=== PATIENT | female | born 1985 | race Caucasian/White ===

== ENCOUNTER 2024-12-04 01:38 | Inpatient (IN) | payer MEDICAID, SELFPAY ==
[2024-12-04] VITALS (13 sets, daily range): BP systolic 121–166; BP diastolic 61–108; PULSE 73–109; RESP 15–32; TEMP 36.4–37.6; O2SAT 76–98; BMI 30.2
--- NOTE | ~2024-12-04 | XR_ITS ---
CLINICAL HISTORY: sob, hypoxic 1 view chest x-ray Comparison: None provided Findings: Perihilar and upper lobe infiltrates. Normal size heart. No acute fracture. IMPRESSION: Perihilar and upper lobe infiltrates. This document has been electronically signed by: Viraj Marques MD, PHD on 12/04/2024 03:31:23
--- NOTE | ~2024-12-04 | CT_ITS ---
CLINICAL HISTORY: unresponsive, sob, elevated dimer CT angiography chest with contrast. 3D Postprocessing. Comparison: None provided Findings: The heart is normal size. RV/LV ratio is normal. The thoracic aorta is normal caliber. No acute pulmonary embolus. The visualized thyroid and mediastinum are unremarkable. There is diffuse consolidation, possible pneumonia, pulmonary edema, hemorrhage. The upper abdomen is unremarkable. The bones are intact. IMPRESSION: 1. No pulmonary emboli. 2. Diffuse consolidation, differential considerations noted This document has been electronically signed by: Robert Gardiner MD on 12/04/2024 05:20:13
--- NOTE | 2024-12-04 02:12 | ECG_ITS ---
Test Reason : OD Blood Pressure : */* mmHG Vent. Rate : 74 BPM Atrial Rate : 74 BPM P-R Int : 176 ms QRS Dur : 86 ms QT Int : 424 ms P-R-T Axes : 49 -3 53 degrees QTcB Int : 470 ms Normal sinus rhythm Septal infarct , age undetermined Abnormal ECG No previous ECGs available Referred By: Mckenna Martinez Electronically Signed By: KATERINA EDWARDS
--- NOTE | 2024-12-04 02:13 | PC.NURSE ---
87% on 4L nc. placed on 7L oxymask. MD Martinez at bedside. no narcan given. remains at 88% when resting w/ eyes closed. pt awakes easily but does not stay awake. 20IV LAC
[2024-12-04 02:15] LABS: MANUAL DIFF FLAG NO
[2024-12-04 02:17] LABS: Hematocrit 39.1 % (37.0-47.0); Hemoglobin 13.1 g/dl (12.0-16.0); Imm Gran Abs Auto 0.04 X10*3/uL (0.00-0.03); Imm Gran Pct Auto 0.4 % (0.0-0.4); Lymphocytes Absolute Auto 1.4 X10*3/uL (1.2-4.9); Mean Corpuscular HGB Conc 33.5 g/dl (31.0-35.0); Mean Corpuscular Hemoglobin 30.0 pg (27.0-33.0); Mean Corpuscular Volume 89.7 fL (80.0-98.0); NRBC Abs Auto 0.000 X10*3/uL (0.0-0.012); NRBC Pct Auto 0.0 /100WBC (0.0-0.2); Platelet Count 199 X10*3/uL (160-400); Red Blood Count 4.36 X10*6/uL (4.20-5.50); White Blood Count 9.1 X10*3/uL (4.8-10.8)
--- NOTE | 2024-12-04 02:20 | ED_ITS ---
HPI - Overdose General Chief Complaint: Overdose Stated Complaint: Overdose Time Seen by Provider: 12/04/24 02:01 Source: patient and EMS Mode of arrival: EMS Limitations: no limitations History of Present Illness ED Provider: Dr. Mckenna Martinez HPI Narrative: Patient comes to the emergency room via ambulance. According to EMS, the patient was found at home unresponsive by her roommates. Patient admits that she has smoke crack cocaine and possibly used heroin. Allegedly, she was given 24 mg intranasal of Narcan by her roommate. According to the patient, this was an accidental overdose, did not mean to hurt herself. When EMS arrived, patient's oxygen saturation was in the low 80s on room air. Patient was put on 4 L nasal cannula. On arrival, patient's nurse attempted weaning the patient off, patient fell asleep and within sec her oxygen dropped to 76% on room air. Patient was put back again on nasal cannula. Related Data Allergies Allergy/AdvReac Type Severity Reaction Status Date / Time hydrochlorothiazide AdvReac Unknown Verified 12/04/24 01:50 lisinopril AdvReac Cough Verified 12/04/24 01:50 Review of Systems 2 Review of Systems: Constitutional : No Weight loss, No Fever, No Chills, No Night Sweats, No Fatigue, No Malaise ENT/Mouth : No Hearing loss, No Ear Pain, No Nasal Congestion, No Sinus Pain, No Hoarseness, No sore throat, No Rhinorrhea, No Swallowing Difficulty Eyes: No Eye Pain, No Swelling, No Redness, No Foreign Body, No Discharge, No Vision Changes Cardiovascular : No Chest Pain, No SOB, No Dyspnea on Exertion, No Orthopnea, No Edema, No Palpitations Respiratory : No Cough, No Sputum, No Wheezing, No Smoke Exposure, No Dyspnea Gastrointestinal : No Nausea, No Vomiting, No Diarrhea, No Constipation, No abdominal Pain, No Hematochezia, No Melena Genitourinary : no irregular bleeding, No Dysuria, No Urinary Frequency, No Hematuria, No Urinary Incontinence, No Urgency, No Flank Pain, No Urinary Flow Changes, No Hesitancy Musculoskeletal : No joint pain, No Myalgias, No Joint Swelling Skin : No Skin Lesions, No rash Neuro : No Weakness, No Numbness, No Paresthesias, No Loss of Consciousness, No Dizziness, No Headache Psych : No Anxiety/Panic, No Depression, No SI/HI/AH/VH, accidental overdose Heme/Lymph: No Bruising, No Bleeding,No Lymphadenopathy Endocrine : No Polyuria, No Polydipsia, No Temperature Intolerance [facility] Past Medical History Medical History (Updated 12/04/24 @ 05:50 by Mckenna Martinez MD) Overdose Polysubstance abuse Physical Exam 2 Exam: Exam: Appearance: Alert. Oriented X3. Somnolent but easily arousable, patient wakes up and is able to give a coherent history Eyes: Pupils equal, round and reactive to light. ENT: Pharynx normal. Neck: Normal inspection. Neck supple. No lymph nodes noted. No crepitus CVS: Normal heart rate and rhythm. Pulses normal. Normal S1 and S2 Respiratory: No respiratory distress. Breath sounds normal. No Wheezing. No rales Abdomen: Soft and nontender. No rigidity. No distention. Skin: Skin warm and dry. Normal skin color. Normal skin turgor. Extremities: No lower extremity edema. No Lacerations. No Rash Neuro: Oriented X 3. No motor deficit. No sensory deficit. Moving all extremities. No slurred speech. CN 2 through 12 grossly intact Psych: calm, cooperative, normal affect Vital Signs: Vital Signs: Last Vital Signs Temp 97.6 F 12/04/24 01:49 Pulse 79 12/04/24 04:29 Resp 24 H 12/04/24 04:29 BP 138/70 12/04/24 04:29 Pulse Ox 91 L 12/04/24 04:29 O2 Del Method Oxymask 12/04/24 04:29 O2 Flow Rate 7 12/04/24 04:29 BMI result Body Mass Index 30.2 Course Course Course Narrative: Although patient is fully awake talking and making sense talking to us. Patient's oxygen saturation drops to 86 -87% on 4 L of oxygen while talking and being awake. If patient did not falls asleep, even on 4 L, oxygen saturation drops to the low 80s. Patient was switched to OxyMask. All of patient's labs pending It is very unlikely that patient received at much Narcan. Patient labs not have any signs of narcotics withdrawal Patient receiving IV Narcan, at least to get the patient to have a constant oxygen saturation above 90 After 0.2 mg of Narcan, patient initially was doing okay, saturating 91% on 4 L. However, patient is desaturating and again. Patient now receiving an additional dose of 0.4 mg of Narcan and Zofran. So far, the patient does not show any signs of narcotic withdrawal Medications Administered Generic Name Dose Route Start Last Admin Trade Name Freq PRN Reason Stop Dose Admin Azithromycin 500 mg/ Sodium 250 mls @ 125 mls/hr 12/04/24 04:09 12/04/24 05:39 Chloride IV 12/04/24 06:08 125 mls/hr ONCE ONE Administration Sodium Chloride 2,000 mls @ 999 mls/hr 12/04/24 04:10 12/04/24 05:43 Ns IVCONT 12/04/24 06:10 999 mls/hr .Q2H1M ONE Administration Discontinued Medications Generic Name Dose Route Start Last Admin Trade Name Freq PRN Reason Stop Dose Admin Ceftriaxone Sodium 1 gm 12/04/24 03:50 12/04/24 03:58 Ceftriaxone Sodium 1 Gm Vial IVPUSH 12/04/24 03:51 1 gm ONCE ONE Administration Naloxone HCl 0.2 mg 12/04/24 02:16 12/04/24 02:25 Naloxone Hcl 0.4 Mg/Ml Vial IVPUSH 12/04/24 02:17 0.2 mg STAT STA Administration Naloxone HCl 0.4 mg 12/04/24 03:45 12/04/24 03:53 Naloxone Hcl 0.4 Mg/Ml Vial IVPUSH 12/04/24 03:46 0.4 mg ONCE ONE Administration Ondansetron HCl 4 mg 12/04/24 02:17 12/04/24 02:26 Ondansetron Hcl 4 Mg/2 Ml Vial IVPUSH 12/04/24 02:18 4 mg ONCE ONE Administration Medical Decision Making Medical Decision Making MDM Narrative: Interpretation of labs: No significant abnormality in patient's hematology or chemistry. Patient's D-dimer is 2052. Given patient's presentation, hypoxia and D-dimer, we will go ahead and scan for a pulmonary embolism versus septic emboli? Patient's urinalysis positive for UTI. Patient at this time is too somnolent to be able to take p.o.. We will go ahead and give her the 1st dose of IV antibiotics. Ceftriaxone. At this time, 04:10, I was able to see the patient's CAT scan. At this time, it has not been read by Radiology, however, seems that patient may be developing pneumonia, possible septic emboli? At this time we will add azithromycin to the this medications. Patient's vitals are stable, sepsis is not suspected. Patient is being given fluids based on ideal weight of 50 kg, patient is obese CT scan report pending. Patient requiring 7 L of oxygen with an OxyMask to keep the saturation of 90% Patient is answering questions. Patient was asked if she has had any URI symptoms. Patient states that ?for awhile? she has been coughing black stuff. We attempted to figure out what ?awhile? means, patient states she does not know Patient's CTA is negative for PE. Definitive diagnosis difficult to interpret. Radiology report: Pneumonia versus hemorrhage versus edema I discussed the above-mentioned with Dr. Mercedes, patient being admitted. Patient's oxygen saturation is in the 90s but drops to the high 80s even on 7 L to 10 L. Patient does not have history of COPD or pneumonia. However, speaking with our respiratory therapist, we will try some nebulization treatments and we will switch the patient to high flow. Differential Diagnosis Differential Diagnoses: The differential diagnosis associated with the presentation includes (Pulmonary embolism, pneumonia, aspiration, overdose) Admission/Observation Consideration of admission/observation: Escalation of care including admission/observation considered Consult Healthcare Provider Management of the patient was discussed with: Hospitalist Lab Data [facility] Lab Attestation statement: I reviewed the patient's lab results. 12/04/24 02:11 12/04/24 02:11 Labs: Lab Results 12/04/24 12/04/24 12/04/24 Range/Units 02:11 02:23 03:17 WBC 9.1 (4.8-10.8) X10*3/uL RBC 4.36 (4.20-5.50) X10*6/uL Hgb 13.1 (12.0-16.0) g/dl Hct 39.1 (37.0-47.0) % MCV 89.7 (80.0-98.0) fL MCH 30.0 (27.0-33.0) pg MCHC 33.5 (31.0-35.0) g/dl RDW 12.7 (11.0-16.0) % Plt Count 199 (160-400) X10*3/uL MPV 11.1 (9.4-12.3) fL Immature Gran % (Auto) 0.4 (0.0-0.4) % Neut % (Auto) 78.2 H (45-73) % Lymph % (Auto) 15.1 L (20-40) % Eagle % (Auto) 4.2 (2-11) % Eos % (Auto) 1.5 (0-4) % Baso % (Auto) 0.6 (0-2) % Lymph # (Auto) 1.4 (1.2-4.9) X10*3/uL Eagle # (Auto) 0.4 (0.1-1.2) X10*3/uL Eos # (Auto) 0.1 (0.0-0.4) X10*3/uL Baso # (Auto) 0.1 (0.0-0.2) X10*3/uL Abs Immat Gran (auto) 0.04 H (0.00-0.03) X10*3/uL Absolute Neuts (auto) 7.1 (2.0-8.3) x10*3/uL Absolute Nucleated RBC 0.000 (0.0-0.012) X10*3/uL Nucleated RBC % (auto) 0.0 (0.0-0.2) /100WBC D-Dimer High Sensitivty 2053 NG/ML Sodium 142 (135-145) mmol/L Potassium 3.3 (3.3-5.1) mmol/L Chloride 110 H (96-108) mmol/L Carbon Dioxide 23 (22-29) mmol/L Anion Gap 12 (12-20) BUN 32 H (9-16) mg/dL Creatinine 0.99 (0.5-1.4) mg/dL Estim Creat Clear Calc 79.2 Estimated GFR > 60 Random Glucose 162 H (60-115) mg/dL Lactic Acid (0.5-2.0) mmol/L Calcium 8.1 L (8.4-10.2) mg/dL Magnesium 2.2 (1.6-2.6) mg/dL Total Bilirubin 0.2 (0.0-1.0) mg/dL Direct Bilirubin < 0.2 (0.0-0.5) mg/dL AST 42 H (5-31) U/L ALT 26 (0-31) U/L Alkaline Phosphatase 57 (39-117) U/L Total Protein 6.4 L (6.5-8.0) g/dL Albumin 4.0 (3.5-5.0) g/dL Beta HCG, Quant < 2 mIU/mL Urine Color Yellow Urine Appearance Clear Urine pH 6.5 (5.0-9.0) Ur Specific Linch 1.020 (1.005-1.025) Urine Protein 30 (1+) H (Neg-Trace) mg/dL Urine Glucose (UA) Negative (Negative) mg/dL Urine Ketones Negative (Negative) mg/dL Urine Blood Negative (Negative) Urine Nitrite Negative (Negative) Ur Leukocyte Esterase Moderate (2+) H (Negative) Urine RBC 0-2 (0-2) /HPF Urine WBC >50 H (0-5) /HPF Ur Squamous Epith Cells 3-5 (0-2) /HPF Urine Bacteria 1+ (None Seen) Hyaline Casts 3-5 (0-2) /LPF Urine Opiates Screen POSITIVE H (Not Detect) Ur Buprenorphine Scrn Not Detected (Not Detect) ng/mL Ur Oxycodone Screen Not Detected (Not Detect) ng/mL Urine Methadone Screen Not Detected (Not Detect) ng/mL Urine Fentanyl Screen POSITIVE H (Not Detect) Ur Barbiturates Screen Not Detected (Not Detect) Ur Phencyclidine Scrn Not Detected (Not Detect) Ur Amphetamines Screen Not Detected (Not Detect) U Benzodiazepines Scrn Not Detected (Not Detect) Urine Cocaine Screen POSITIVE H (Not Detect) U Marijuana (THC) Screen Not Detected (Not Detect) Ethyl Alcohol < 10 mg/dL Influenza Type A (PCR) NEGATIVE (Negative) Influenza Type B (PCR) NEGATIVE (Negative) RSV RNA Qual (PCR) NEGATIVE (Negative) SARS-CoV-2 RNA (RT-PCR) NEGATIVE (Negative) 12/04/24 Range/Units 05:01 WBC (4.8-10.8) X10*3/uL RBC (4.20-5.50) X10*6/uL Hgb (12.0-16.0) g/dl Hct (37.0-47.0) % MCV (80.0-98.0) fL MCH (27.0-33.0) pg MCHC (31.0-35.0) g/dl RDW (11.0-16.0) % Plt Count (160-400) X10*3/uL MPV (9.4-12.3) fL Immature Gran % (Auto) (0.0-0.4) % Neut % (Auto) (45-73) % Lymph % (Auto) (20-40) % Eagle % (Auto) (2-11) % Eos % (Auto) (0-4) % Baso % (Auto) (0-2) % Lymph # (Auto) (1.2-4.9) X10*3/uL Eagle # (Auto) (0.1-1.2) X10*3/uL Eos # (Auto) (0.0-0.4) X10*3/uL Baso # (Auto) (0.0-0.2) X10*3/uL Abs Immat Gran (auto) (0.00-0.03) X10*3/uL Absolute Neuts (auto) (2.0-8.3) x10*3/uL Absolute Nucleated RBC (0.0-0.012) X10*3/uL Nucleated RBC % (auto) (0.0-0.2) /100WBC D-Dimer High Sensitivty NG/ML Sodium (135-145) mmol/L Potassium (3.3-5.1) mmol/L Chloride (96-108) mmol/L Carbon Dioxide (22-29) mmol/L Anion Gap (12-20) BUN (9-16) mg/dL Creatinine (0.5-1.4) mg/dL Estim Creat Clear Calc Estimated GFR Random Glucose (60-115) mg/dL Lactic Acid 0.9 (0.5-2.0) mmol/L Calcium (8.4-10.2) mg/dL Magnesium (1.6-2.6) mg/dL Total Bilirubin (0.0-1.0) mg/dL Direct Bilirubin (0.0-0.5) mg/dL AST (5-31) U/L ALT (0-31) U/L Alkaline Phosphatase (39-117) U/L Total Protein (6.5-8.0) g/dL Albumin (3.5-5.0) g/dL Beta HCG, Quant mIU/mL Urine Color Urine Appearance Urine pH (5.0-9.0) Ur Specific Linch (1.005-1.025) Urine Protein (Neg-Trace) mg/dL Urine Glucose (UA) (Negative) mg/dL Urine Ketones (Negative) mg/dL Urine Blood (Negative) Urine Nitrite (Negative) Ur Leukocyte Esterase (Negative) Urine RBC (0-2) /HPF Urine WBC (0-5) /HPF Ur Squamous Epith Cells (0-2) /HPF Urine Bacteria (None Seen) Hyaline Casts (0-2) /LPF Urine Opiates Screen (Not Detect) Ur Buprenorphine Scrn (Not Detect) ng/mL Ur Oxycodone Screen (Not Detect) ng/mL Urine Methadone Screen (Not Detect) ng/mL Urine Fentanyl Screen (Not Detect) Ur Barbiturates Screen (Not Detect) Ur Phencyclidine Scrn (Not Detect) Ur Amphetamines Screen (Not Detect) U Benzodiazepines Scrn (Not Detect) Urine Cocaine Screen (Not Detect) U Marijuana (THC) Screen (Not Detect) Ethyl Alcohol mg/dL Influenza Type A (PCR) (Negative) Influenza Type B (PCR) (Negative) RSV RNA Qual (PCR) (Negative) SARS-CoV-2 RNA (RT-PCR) (Negative) Independent Interpretation I performed an independent interpretation of an: EKG, Plain X-Ray and CT Scan Radiology Impression Discussion of test interpretation with radiology: I have reviewed the radiologist's reading. Radiologist Impression: The heart is normal size. RV/LV ratio is normal. The thoracic aorta is normal caliber. No acute pulmonary embolus. The visualized thyroid and mediastinum are unremarkable. There is diffuse consolidation, possible pneumonia, pulmonary edema, hemorrhage. The upper abdomen is unremarkable. The bones are intact. IMPRESSION: 1. No pulmonary emboli. 2. Diffuse consolidation, differential considerations noted Critical Care Time Critical Care Time Critical Care Time: Yes Total Critical Care Time: 75 Attestation: I have personally provided critical care time. Time includes review of lab data, radiology results, discussion with consultants, and monitoring for potential decompensation. Intervention performed as documented. Discharge Plan Discharge Clinical Impression: Overdose, Pneumonia, Respiratory failure Patient Disposition: Admitted As Inpatient
[2024-12-04 02:24] LABS: D Dimer High Sensitivity 2053 NG/ML
--- NOTE | 2024-12-04 02:27 | PC.NURSE ---
0.2mg IV narcan given
[2024-12-04 02:32] LABS: Anion Gap 12 (12-20)
[2024-12-04 02:34] LABS: Alanine Aminotransferase 26 U/L (0-31); Albumin Level 4.0 g/dL (3.5-5.0); Alkaline Phosphatase 57 U/L (39-117); Aspartate Amino Transferase 42 U/L (5-31); Blood Urea Nitrogen 32 mg/dL (9-16); Calcium 8.1 mg/dL (8.4-10.2); Carbon Dioxide 23 mmol/L (22-29); Chloride 110 mmol/L (96-108); Creatinine Clr Calc Pharmacy 79.2; Estimated Glomerular Filt Rate > 60; Magnesium 2.2 mg/dL (1.6-2.6); Potassium 3.3 mmol/L (3.3-5.1); Sodium 142 mmol/L (135-145); Total Protein 6.4 g/dL (6.5-8.0)
[2024-12-04 03:07] LABS: Resp Syncy Virus RNA Qual PCR NEGATIVE (Negative); SARS COV2 PCR INHOUSE NEGATIVE (Negative)
--- NOTE | 2024-12-04 03:13 | PC.NURSE ---
pt awake, assist to commode, UA/BATISTA collected
[2024-12-04 03:25] LABS: Appearance Urine Clear; Glucose Urine UA Negative (Negative); PH 6.5 (5.0-9.0); Specific Gravity - Urine 1.020 (1.005-1.025); UMIC TRIGGER UACC YES
[2024-12-04 03:28] LABS: UACC Culture Trigger YES
[2024-12-04 03:37] LABS: Cannabinoid Screen Urine Not Detected (Not Detect)
--- NOTE | 2024-12-04 04:02 | PC.NURSE ---
O2 remains at 89% on 7L oxymask. 0.4mg IV narcan given per JUN. now 91%
--- NOTE | 2024-12-04 04:19 | PC.NURSE ---
ordered IV ABX for UTI d/t pt being unable to take PO at this time. per MD no blood cultures at that time for UTI. ordered more ABX IV after receiving CXR report. cultures now ordered, ABX to be given after
--- NOTE | 2024-12-04 05:31 | PM.IMHP ---
History of Present Illness Date of Service: 12/04/24 Attending physician on admission: Wanda Mercedes Chief Complaint: overdose Pt is a 39 yo female with PMH HTN, Depression, Anxiety, substance use disorder, IUD placed September 2022 brought in by ambulance s/p being found by roommate unresposnive secondary to suspected accidental drug overdose with crack and possible heroin. Pt recieved 25 mg of INH Narcan administered by roommate. Pt was responsive and awake when EMS arrived. Pt denied SI. Concern for aspiration PNA noting hypoxica requirring 7L oxymask. Pt 's ddimer 1999 and concern also for septic emboli. Pt started on ceftriaxone and azithromycin in the ED. Toxicology screen positive for opiates, fentanyl and cocaine. Pt seen in ED and started on HIFLOW from Oximask. POX dropped to 87% while awake during coughing spell. RT doing bronch protocol. VBG pending. BNP pending. CTA negative for PE but noted for PNA, suspect aspiration. Pt provided minimal HPI but states she uses drugs daily and did reiterate that she was not feeling SI. Pt has had help in the past for depression and anxiety but has not had any services in the community by choice. Pt also has not had any RX meds for HTN in some time as pt has not been seeing PCP regularly. Review of Systems Review of Systems: Pt denies chest pain but would not answer any further questions re ROS> Yes Unobtainable due to mental condition [facility] Medical History Overdose Polysubstance abuse Cognitive capacity: Awake and able to follow commands and protect airway Functional capacity: independent ambulation Patient : No (IUD ) Social History Advance Directives: No Advance Directives Information Provided: Yes Patient : No (IUD ) Ebola Risk: Travel/Contact With Anyone From Affected Area/s: No Has Patient Experienced Ebola Symptoms: No Meds Allergies Allergy/AdvReac Type Severity Reaction Status Date / Time hydrochlorothiazide AdvReac Unknown Verified 12/04/24 01:50 lisinopril AdvReac Cough Verified 12/04/24 01:50 Active Medications: Current Medications Acetaminophen (Acetaminophen 325 Mg Tablet) 650 mg PO Q6H PRN PRN Reason: Pain, Mild 1-3,fever,headache Albuterol/Ipratropium (Albuterol/Iprat 2.5/0.5mg 3 Ml Ampul.Neb) 3 ml INHALE Q4H PRN PRN Reason: Shortness of Breath/Wheezing Calcium Carbonate (Calcium Carbonate 750 Mg Tab.Chew) 750 mg PO Q4H PRN PRN Reason: Heartburn Enoxaparin Sodium (Enoxaparin Sodium 40 Mg/0.4 Ml Syringe) 40 mg SUBCUT Q24H [facility] Azithromycin 500 mg/ Sodium (Chloride) 250 mls @ 125 mls/hr IV ONCE ONE Stop: 12/04/24 06:08 Sodium Chloride (Ns) 2,000 mls @ 999 mls/hr IVCONT .Q2H1M ONE Stop: 12/04/24 06:10 Ampicillin Sodium/Sulbactam (Sodium 3 gm/ Sodium Chloride) 100 mls @ 200 mls/hr IV Q6H [facility] Magnesium Hydroxide (Milk Of Magnesia 30 Ml Oral.Susp) 30 ml PO DAILY PRN PRN Reason: Constipation Melatonin (Melatonin 3 Mg Tablet) 6 mg PO BEDTIME PRN PRN Reason: Insomnia Ondansetron HCl (Ondansetron Hcl 4 Mg/2 Ml Vial) 4 mg IVPUSH Q8H PRN PRN Reason: Nausea and Vomiting Polyethylene Glycol (Polyethylene Glycol 3350 17 Gm Powd.Pack) 17 gm PO DAILY PRN PRN Reason: Constipation Senna (Sennosides 8.6 Mg Tablet) 17.2 mg PO BEDTIME [facility] Sodium Chloride (0.9 % Sodium Chloride Flush 3 Ml Syringe) 3 ml IVFLUSH QSHIFT [facility] Physical Exam Vital Signs and Narrative: Vital Signs: Last Vital Signs Temp 97.6 F 12/04/24 01:49 Pulse 79 12/04/24 04:29 Resp 24 H 12/04/24 04:29 BP 138/70 12/04/24 04:29 Pulse Ox 91 L 12/04/24 04:29 O2 Del Method Oxymask 12/04/24 04:29 O2 Flow Rate 7 12/04/24 04:29 BMI result Body Mass Index 30.2 Awake, able to follow commands and protect airway Neuro: CN II-X11 intact, no deficits, visual acuity intact EYES: PERRLA, EOM intact, sclera nonicteric ENT: hearing intact, no issues with swallowing, uvula midline, lips moist, nares patent no epistaxis Cardiac: S1 S2 RRR, no murmur, no JVD, no edema in Lower ext Pulmonary: lungs B wheeze, RH, diminshed at base Abdominal: BS active in all 4 quadrants, no guarding, tenderness, rebounding MSK: strength 5/5 upper and lower extremities : no CVA tenderness no bladder distension Extremities: no edema in lower extremities, PT and DP pulses palpable +2 Psych: mood stable, judgement and insight good Skin: tattoos no open wounds seen on external exam Results Labs 12/04/24 02:11 12/04/24 02:11 Labs: Laboratory Results - last 24 hr 12/04/24 12/04/24 12/04/24 02:11 02:23 03:17 MCV 89.7 MCH 30.0 MCHC 33.5 RDW 12.7 Plt Count 199 MPV 11.1 Immature Gran % (Auto) 0.4 Neut % (Auto) 78.2 H Lymph % (Auto) 15.1 L Dodge % (Auto) 4.2 Eos % (Auto) 1.5 Baso % (Auto) 0.6 Lymph # (Auto) 1.4 Dodge # (Auto) 0.4 Eos # (Auto) 0.1 Baso # (Auto) 0.1 Abs Immat Gran (auto) 0.04 H Absolute Neuts (auto) 7.1 Absolute Nucleated RBC 0.000 Nucleated RBC % (auto) 0.0 D-Dimer High Sensitivty 2053 Anion Gap 12 Estim Creat Clear Calc 79.2 Estimated GFR > 60 Random Glucose 162 H Lactic Acid Calcium 8.1 L Magnesium 2.2 Total Bilirubin 0.2 Direct Bilirubin < 0.2 AST 42 H ALT 26 Alkaline Phosphatase 57 Total Protein 6.4 L Albumin 4.0 Beta HCG, Quant < 2 Urine Color Yellow Urine Appearance Clear Urine pH 6.5 Ur Specific Bazine 1.020 Urine Protein 30 (1+) H Urine Glucose (UA) Negative Urine Ketones Negative Urine Blood Negative Urine Nitrite Negative Ur Leukocyte Esterase Moderate (2+) H Urine RBC 0-2 Urine WBC >50 H Ur Squamous Epith Cells 3-5 Urine Bacteria 1+ Hyaline Casts 3-5 Urine Opiates Screen POSITIVE H Ur Buprenorphine Scrn Not Detected Ur Oxycodone Screen Not Detected Urine Methadone Screen Not Detected Urine Fentanyl Screen POSITIVE H Ur Barbiturates Screen Not Detected Ur Phencyclidine Scrn Not Detected Ur Amphetamines Screen Not Detected U Benzodiazepines Scrn Not Detected Urine Cocaine Screen POSITIVE H U Marijuana (THC) Screen Not Detected Ethyl Alcohol < 10 Influenza Type A (PCR) NEGATIVE Influenza Type B (PCR) NEGATIVE RSV RNA Qual (PCR) NEGATIVE SARS-CoV-2 RNA (RT-PCR) NEGATIVE 12/04/24 05:01 MCV MCH MCHC RDW Plt Count MPV Immature Gran % (Auto) Neut % (Auto) Lymph % (Auto) Dodge % (Auto) Eos % (Auto) Baso % (Auto) Lymph # (Auto) Dodge # (Auto) Eos # (Auto) Baso # (Auto) Abs Immat Gran (auto) Absolute Neuts (auto) Absolute Nucleated RBC Nucleated RBC % (auto) D-Dimer High Sensitivty Anion Gap Estim Creat Clear Calc Estimated GFR Random Glucose Lactic Acid 0.9 Calcium Magnesium Total Bilirubin Direct Bilirubin AST ALT Alkaline Phosphatase Total Protein Albumin Beta HCG, Quant Urine Color Urine Appearance Urine pH Ur Specific Bazine Urine Protein Urine Glucose (UA) Urine Ketones Urine Blood Urine Nitrite Ur Leukocyte Esterase Urine RBC Urine WBC Ur Squamous Epith Cells Urine Bacteria Hyaline Casts Urine Opiates Screen Ur Buprenorphine Scrn Ur Oxycodone Screen Urine Methadone Screen Urine Fentanyl Screen Ur Barbiturates Screen Ur Phencyclidine Scrn Ur Amphetamines Screen U Benzodiazepines Scrn Urine Cocaine Screen U Marijuana (THC) Screen Ethyl Alcohol Influenza Type A (PCR) Influenza Type B (PCR) RSV RNA Qual (PCR) SARS-CoV-2 RNA (RT-PCR) Imaging Radiologist's Impressions: CTA NEG for PE PNA Assessment and Plan (1) PNA (pneumonia): Qualifiers: Laterality: unspecified laterality Lung location: unspecified part of lung Pneumonia type: due to unspecified organism Qualified Code(s): J18.9 - Pneumonia, unspecified organism Status: Acute (2) Overdose: Qualifiers: Encounter type: initial encounter Injury intent: accidental or unintentional Qualified Code(s): T50.901A - Poisoning by unspecified drugs, medicaments and biological substances, accidental (unintentional), initial encounter Status: Acute Plan Pt is a 39 yo female with PMH HTN, Depression, Anxiety, substance use disorder, IUD placed September 2022 brought in by ambulance s/p being found by roommate unresposnive secondary to suspected accidental drug overdose with crack and possible heroin. Pt recieved 25 mg of INH Narcan administered by roommate. Pt was responsive and awake when EMS arrived. Pt denied SI. Concern for aspiration PNA noting hypoxica requirring 7L oxymask. Pt 's ddimer 1999 and concern also for septic emboli. Pt transitioned to hi flow as POX dropped to 84 during coughing spell. Acute hypoxic Respiratory Failure CT neg for PE, positive for PNA Hiflow currently, 40 L 50% VBG pending Duo nebs - RT bronch protocol ordered Continuous Pulse OX Pulmonary consult PNA secdonary to suspected aspiration during accidental overdose Pt now on Unasyn Is able to protect airway Suspect aspiration with overdose and use of crack cocaine Substance use disorder Addictions consulted COWS ordered Pt uses daily DVT Prophylaxis: lovenox MED REC PENDING no current RX meds in use per pt FULL CODE Reviewed POC with DR. MERCEDES Quality Stroke Does the patient have a stroke diagnosis?: No Reason for No Anti-thrombotic by Day Two: N/A - Med Ordered VTE Prior VTE?: No VTE Risk Level:: Medical - moderate - high VTE Device Contraindication: N/A - Device Ordered VTE Drug Contraindication: N/A - Med Ordered
--- NOTE | 2024-12-04 05:44 | PC.NURSE ---
84% 7L oxymask. increased to 10L per MD. hospitalist and RT at bedside
[2024-12-04 05:53] LABS: B Type Natriuretic Peptide 14 pg/mL (<100)
--- NOTE | 2024-12-04 06:06 | PC.NURSE ---
pt now on high flow O2
[2024-12-04] MEDS: Albuterol Sulfate 7.5 MG, Albuterol/Iprat 2.5/0.5MG 3 ML 3 ML INHALE (06:08)
[2024-12-04 06:34] LABS: Venous Blood Gas Refer to POC result
[2024-12-04 06:38] LABS: VBG HCO3 21 mmol/L (22-26); VBG O2 % Saturation 97.0 %
--- NOTE | 2024-12-04 07:20 | PHA.MEDREC ---
Pharmacy Consult ? Medication Reconciliation Pharmacy has completed the medication reconciliation. Spoke to patient at bedside, she initially said she took nothing but filled all her meds on 11/23/24 for the first time in months. She then listed her meds off to me but states she hasn't consistently taken them in some time and has been trying to get back into the habit with her baclofen.
--- NOTE | 2024-12-04 08:35 | PC.NURSE ---
delay in the Unasyn administration do to other ABX not finishing and pt is a hard stick and has only one iv access
--- NOTE | 2024-12-04 08:46 | PC.NURSE ---
Pt is still very sleepy at this time. RR even and unlabored and no visible s/s of distress.
--- NOTE | 2024-12-04 09:36 | PC.NURSE ---
pt is still a little tired, falls asleep frequently but easily arousable to verbal stimuli, RT placed pt on 5L NC from high flow o2. RR even, elevated rate and a little shalow but RR even and lung sounds clear, ocassional unprouctive cough. Pt denies any pain at this time, calm, cooperative. A+OX4.
--- NOTE | 2024-12-04 11:44 | PM.CNPUL ---
History of Present Illness History of Present Illness Consult date: 12/04/24 Chief complaint: Abnormal CT chest Narrative: 39-year-old lady with underlying depression, anxiety, substance abuse admitted 12/04/2024 polysubstance abuse. On initial evaluation patient noted to be hypoxemic requiring OxyMask to maintain normal oximetry. Her CT angio chest was negative for pulmonary emboli, but showed bilateral multifocal infiltrates. Review of Systems Review of Systems: Yes Unobtainable due to mental status (Lethargic, confused) [facility] Past Medical History Medical History Overdose Polysubstance abuse Social History Social History Patient Tobacco Use Status: Never used Tobacco Smoked in Last 30 Days: No Use of substances other than those prescribed or required for medical reasons: Yes Substance Use Type: Crack/Cocaine Substance Use Frequency: Daily Last Used Substance: Days (ago) Any prior treatment program specific to substance use: No Advance Directives: No Advance Directives Information Provided: Yes Nutrition Risks: No Nutritional Risk Patient : No Travel History Ebola Risk: Travel/Contact With Anyone From Affected Area/s: No Has Patient Experienced Ebola Symptoms: No Meds Allergies Allergy/AdvReac Type Severity Reaction Status Date / Time hydrochlorothiazide AdvReac Unknown Verified 12/04/24 01:50 lisinopril AdvReac Cough Verified 12/04/24 01:50 Active Medications: Current Medications Acetaminophen (Acetaminophen 325 Mg Tablet) 650 mg PO Q6H PRN PRN Reason: Pain, Mild 1-3,fever,headache Albuterol/Ipratropium (Albuterol/Iprat 2.5/0.5mg 3 Ml Ampul.Neb) 3 ml INHALE Q4H PRN PRN Reason: Shortness of Breath/Wheezing Calcium Carbonate (Calcium Carbonate 750 Mg Tab.Chew) 750 mg PO Q4H PRN PRN Reason: Heartburn Enoxaparin Sodium (Enoxaparin Sodium 40 Mg/0.4 Ml Syringe) 40 mg SUBCUT Q24H AMELIA Last Admin: 12/04/24 08:24 Dose: 40 mg Ampicillin Sodium/Sulbactam (Sodium 3 gm/ Sodium Chloride) 100 mls @ 200 mls/hr IV Q6H [facility] Last Infusion: 12/04/24 09:00 Dose: Infused Magnesium Hydroxide (Milk Of Magnesia 30 Ml Oral.Susp) 30 ml PO DAILY PRN PRN Reason: Constipation Melatonin (Melatonin 3 Mg Tablet) 6 mg PO BEDTIME PRN PRN Reason: Insomnia Ondansetron HCl (Ondansetron Hcl 4 Mg/2 Ml Vial) 4 mg IVPUSH Q8H PRN PRN Reason: Nausea and Vomiting Polyethylene Glycol (Polyethylene Glycol 3350 17 Gm Powd.Pack) 17 gm PO DAILY PRN PRN Reason: Constipation Senna (Sennosides 8.6 Mg Tablet) 17.2 mg PO BEDTIME [facility] Sodium Chloride (0.9 % Sodium Chloride Flush 3 Ml Syringe) 3 ml IVFLUSH QSHIFT [facility] Last Admin: 12/04/24 07:48 Dose: Not Given Home Medications ?Medication ?Instructions ?Recorded ?Confirmed ?Last Taken ?Type baclofen 10 mg tablet 10 mg PO TID 12/04/24 12/04/24 Unknown History clonidine HCl 0.1 mg tablet 0.1 mg PO TID PRN Anxiety 12/04/24 12/04/24 Unknown History fluoxetine 10 mg capsule 10 mg PO DAILY 12/04/24 12/04/24 Unknown History hydroxyzine HCl 50 mg tablet 50 - 100 mg PO BID@0900,1300 PRN 12/04/24 12/04/24 Unknown History Anxiety hydroxyzine HCl 50 mg tablet 100 mg PO BEDTIME PRN Anxiety 12/04/24 12/04/24 Unknown History ibuprofen 800 mg tablet 800 mg PO TID PRN Pain 12/04/24 12/04/24 Unknown History melatonin 5 mg tablet 5 mg PO BEDTIME 12/04/24 12/04/24 Unknown History quetiapine 50 mg tablet 25 - 50 mg PO BEDTIME PRN insomnia 12/04/24 12/04/24 Unknown History Physical Exam Vital Signs: Vital Signs: Last Vital Signs Temp 97.9 F 12/04/24 06:33 Pulse 90 12/04/24 09:32 Resp 22 H 12/04/24 09:32 BP 144/62 H 12/04/24 09:32 Pulse Ox 93 12/04/24 09:32 O2 Del Method Room Air 12/04/24 09:32 O2 Flow Rate 5 12/04/24 08:34 BMI result Body Mass Index 30.2 Const: General: lethargic (Arousable, confused) Orientation/consciousness: lethargic (Arousable, confused) HEENT: Head: Yes atraumatic Eyes: General: appearance normal, both eyes and all related structures Sclerae: sclerae normal EOM: EOMs intact bilaterally Neck: Neck: Yes supple Lymphatic: no lymphadenopathy noted Resp: Effort & Inspection: normal respiratory effort and no use of accessory muscles Auscultation: clear to auscultation bilaterally Cardio: Rate: regular rate Rhythm: regular rhythm Heart sounds: no gallops, no murmurs and no rubs Skin: General skin exam: other ( warm) Extrem: General: No clubbing, No cyanosis and No edema Results Laboratory Findings 12/04/24 02:11 12/04/24 02:11 Abnormal lab findings: Abnormal Labs 12/04/24 12/04/24 12/04/24 02:11 03:17 06:33 Neut % (Auto) 78.2 H Lymph % (Auto) 15.1 L Abs Immat Gran (auto) 0.04 H VBG pH 7.31 L VBG HCO3 21 L Chloride 110 H BUN 32 H Random Glucose 162 H Calcium 8.1 L AST 42 H Total Protein 6.4 L Urine Protein 30 (1+) H Ur Leukocyte Esterase Moderate (2+) H Urine WBC >50 H Urine Opiates Screen POSITIVE H Urine Fentanyl Screen POSITIVE H Urine Cocaine Screen POSITIVE H Assessment and Plan (1) Acute lung injury: Status: Acute Plan Impression: 39-year-old lady admitted with polysubstance overdose initially hypoxemic, now maintain normal oximetry on room air with CT chest showing multifocal infiltrates consistent with drug (likely cocaine) induced lung injury. Recommendations: Would consider brief 5 day systemic glucocorticoids course of prednisone 40 mg daily or equivalent. Procedures Date of Service Date of Service: 12/04/24
--- NOTE | 2024-12-04 12:59 | PM.EVENT ---
Event Note Date of Service: 12/04/24 Event Note: Chart reviewed patient examined. Agree with H&P and plan as outlined. Appreciate Pulmonary input. We will start prednisone 40 mg daily for 5 days. Time Spent With Patient Time: Total time managing care of this patient today ____ minutes.
--- NOTE | 2024-12-04 14:56 | MHC.RECOVRN ---
Attempted to meet with pt. in ED 13 following referral received for accidental OD. Pt resting. Took several calls of her name to awaken her. She acknowledged her name then fell back to sleep. T/W will return at a later time when pt. able to participate in discussion. ACS available as needed.
--- NOTE | 2024-12-04 20:51 | PC.NURSE ---
inquired to charge nurse, green house manager, and security about if patient belongings should go from jorje port to lockers on med/tele. confirmed. belongings to be locked on med tele, Valencia VALDEZ notified and replied with receipt of message.
--- NOTE | 2024-12-04 21:08 | PC.NURSE ---
Pt belongings placed in locked med-tele locker in labeled pt belongings bag.
[2024-12-04] MEDS: 0.9 % Sodium Chloride Flush 3 ML SYRINGE IVFLUSH (22:22)
[2024-12-05] VITALS (11 sets, daily range): BP systolic 148–190; BP diastolic 60–98; PULSE 67–93; RESP 18–20; TEMP 36.1–37.1; O2SAT 93–97
[2024-12-05 06:41] LABS: MANUAL DIFF FLAG NO
[2024-12-05 07:05] LABS: B Type Natriuretic Peptide 81 pg/mL (<100)
[2024-12-05 07:06] LABS: Alanine Aminotransferase 18 U/L (0-31); Albumin Level 3.9 g/dL (3.5-5.0); Alkaline Phosphatase 53 U/L (39-117); Anion Gap 12 (12-20); Aspartate Amino Transferase 26 U/L (5-31); Blood Urea Nitrogen 12 mg/dL (9-16); Calcium 8.8 mg/dL (8.4-10.2); Carbon Dioxide 23 mmol/L (22-29); Chloride 111 mmol/L (96-108); Creatinine Clr Calc Pharmacy 124.4; Estimated Glomerular Filt Rate > 60; Potassium 3.5 mmol/L (3.3-5.1); Sodium 142 mmol/L (135-145); Total Protein 6.5 g/dL (6.5-8.0)
[2024-12-05 07:14] LABS: Hematocrit 39.6 % (37.0-47.0); Hemoglobin 12.8 g/dl (12.0-16.0); Imm Gran Abs Auto 0.02 X10*3/uL (0.00-0.03); Imm Gran Pct Auto 0.2 % (0.0-0.4); Lymphocytes Absolute Auto 2.0 X10*3/uL (1.2-4.9); Mean Corpuscular HGB Conc 32.3 g/dl (31.0-35.0); Mean Corpuscular Hemoglobin 29.9 pg (27.0-33.0); Mean Corpuscular Volume 92.5 fL (80.0-98.0); NRBC Abs Auto 0.000 X10*3/uL (0.0-0.012); NRBC Pct Auto 0.0 /100WBC (0.0-0.2); Platelet Count 175 X10*3/uL (160-400); Red Blood Count 4.28 X10*6/uL (4.20-5.50); White Blood Count 9.8 X10*3/uL (4.8-10.8)
[2024-12-05] MEDS: 0.9 % Sodium Chloride Flush 3 ML SYRINGE IVFLUSH ×3 (09:38→20:02)
--- NOTE | 2024-12-05 10:22 | MHC.CM.PN ---
EMR REVIEWED, PT W/PNA/OD, CM MET W/PT WHO REPORTS SHE IS STAYING W/A [facility] AT [address] [place] [address] IN [place] AND WOULD LIKE ADDRESS CHANGED, TASK SENT TO REGISTRATION. PT IS FULLY INDEP, NO DME/SERVICES OR SA SERVICES AND GOAL IS FOR PT TO RETURN TO FRIENDS HOME. PT VERIFIES PCP IS MADELINE OAKLEY NP AND COPY OF HCP IS PT'S SISTER AND COPY ON FILE AT [facility] IN [place]. PT DECLINES TO GIVE CM HCP'S INFO HOWEVER DID ASK CM TO ADD DTR JOSEPH MCCLELLAN [phone] NEXT OF KIN, TASK SENT. ANTIC PT WILL DC SELF CARE W/SHUTTLE VS LYFT FOR TRANSPORT
--- NOTE | 2024-12-05 12:06 | HO.PM.IMPN ---
Subjective Subjective Date of Service: 12/05/24 Interval History: No acute issues overnight. Persistent productive cough noted Review of Systems Denies chest pain Denies shortness of breath Denies nausea vomiting diarrhea Denies fever chills Physical Exam Vital Signs: Vital Signs: Last Vital Signs Temp 98.8 F 12/05/24 11:32 Pulse 90 12/05/24 11:32 Resp 20 12/05/24 11:32 BP 168/87 H 12/05/24 11:32 Pulse Ox 94 12/05/24 11:32 O2 Del Method Room Air 12/05/24 11:32 O2 Flow Rate 4 12/05/24 07:45 BMI result Body Mass Index 30.2 Const: Other: Awake alert no acute distress Resp: Other: Diminished at bases with scattered expiratory wheezes Cardio: Other: No S4; positive S1-S2; no S3 murmurs rubs or gallops GI: Other: Soft nontender nondistended normoactive bowel sounds Extrem: Other: No edema bilateral Objective Data Active Medications Acetaminophen (Acetaminophen 325 Mg Tablet) 650 mg PO Q6H PRN PRN Reason: Pain, Mild 1-3,fever,headache Albuterol/Ipratropium (Albuterol/Iprat 2.5/0.5mg 3 Ml Ampul.Neb) 3 ml INHALE Q4H PRN PRN Reason: Shortness of Breath/Wheezing Baclofen (Baclofen 10 Mg Tablet) 10 mg PO TID [facility] Last Admin: 12/05/24 09:38 Dose: 10 mg Documented By: GLENNY Calcium Carbonate (Calcium Carbonate 750 Mg Tab.Chew) 750 mg PO Q4H PRN PRN Reason: Heartburn Clonidine HCl (Clonidine Hcl 0.1 Mg Tablet) 0.1 mg PO TID PRN; Protocol PRN Reason: Anxiety Enoxaparin Sodium (Enoxaparin Sodium 40 Mg/0.4 Ml Syringe) 40 mg SUBCUT Q24H [facility] Last Admin: 12/05/24 09:37 Dose: 40 mg Documented By: GLENNY Fluoxetine HCl (Fluoxetine Hcl 10 Mg Capsule) 10 mg PO DAILY [facility] Last Admin: 12/05/24 09:38 Dose: 10 mg Documented By: GLENNY Guaifenesin/Codeine Phosphate (Guaifen/Codeine Sf 200/20/10ml 10 Ml Liquid) 10 ml PO Q4H PRN PRN Reason: Cough Hydroxyzine HCl (Hydroxyzine Hcl 50 Mg Tablet) 100 mg PO BEDTIME PRN PRN Reason: Anxiety Ampicillin Sodium/Sulbactam (Sodium 3 gm/ Sodium Chloride) 100 mls @ 200 mls/hr IV Q6H [facility] Last Infusion: 12/05/24 10:18 Dose: Infused Documented By: GLENNY Magnesium Hydroxide (Milk Of Magnesia 30 Ml Oral.Susp) 30 ml PO DAILY PRN PRN Reason: Constipation Melatonin (Melatonin 3 Mg Tablet) 6 mg PO BEDTIME PRN PRN Reason: Insomnia Ondansetron HCl (Ondansetron Hcl 4 Mg/2 Ml Vial) 4 mg IVPUSH Q8H PRN PRN Reason: Nausea and Vomiting Polyethylene Glycol (Polyethylene Glycol 3350 17 Gm Powd.Pack) 17 gm PO DAILY PRN PRN Reason: Constipation Prednisone (Prednisone 20 Mg Tablet) 40 mg PO DAILY [facility] Stop: 12/09/24 12:54 Last Admin: 12/05/24 09:38 Dose: 40 mg Documented By: GLENNY Senna (Sennosides 8.6 Mg Tablet) 17.2 mg PO BEDTIME [facility] Last Admin: 12/04/24 22:22 Dose: 17.2 mg Documented By: IVON Sodium Chloride (0.9 % Sodium Chloride Flush 3 Ml Syringe) 3 ml IVFLUSH QSHIFT [facility] Last Admin: 12/05/24 09:38 Dose: 3 ml Documented By: GLENNY Labs 12/05/24 06:30 12/05/24 06:30 Labs: Laboratory Results - last 24 hr 12/05/24 06:30 MCV 92.5 MCH 29.9 MCHC 32.3 RDW 13.2 Plt Count 175 MPV 11.9 Immature Gran % (Auto) 0.2 Neut % (Auto) 73.8 H Lymph % (Auto) 20.5 [place] % (Auto) 4.7 Eos % (Auto) 0.3 Baso % (Auto) 0.5 Lymph # (Auto) 2.0 [place] # (Auto) 0.5 Eos # (Auto) 0.0 Baso # (Auto) 0.1 Abs Immat Gran (auto) 0.02 Absolute Neuts (auto) 7.2 Absolute Nucleated RBC 0.000 Nucleated RBC % (auto) 0.0 Anion Gap 12 Estim Creat Clear Calc 124.4 Estimated GFR > 60 Random Glucose 93 Calcium 8.8 D Total Bilirubin 0.7 AST 26 ALT 18 Alkaline Phosphatase 53 B-Natriuretic Peptide 81 Total Protein 6.5 Albumin 3.9 Microbiology Microbiology Results: Microbiology 12/04/24 Unknown Urine Culture - Final Urine clean catch - Clean Catch Midstream Strep agalactiae (Grp B) 12/04/24 05:01 Blood Culture - Preliminary Blood - Venous No growth after 24 hours. 12/04/24 05:01 Blood Culture - Preliminary Blood - Venous No growth after 24 hours. Assessment and Plan (1) PNA (pneumonia): Status: Acute (2) Acute lung injury: Status: Acute (3) Polysubstance abuse: Status: Acute Plan Pt is a 39 yo female with PMH HTN, Depression, Anxiety, substance use disorder, IUD placed September 2022 brought in by ambulance s/p being found by roommate unresposnive secondary to suspected accidental drug overdose with crack and possible heroin. Pt recieved 25 mg of INH Narcan administered by roommate. Pt was responsive and awake when EMS arrived. Pt denied SI. Concern for aspiration PNA noting hypoxica requirring 7L oxymask. Pt 's ddimer 1999 and concern also for septic emboli. Pt transitioned to hi flow as POX dropped to 84 during coughing spell. 1. Aspiration pneumonia likely secondary to accidental overdose -Unasyn (2) -change to IV steroids (methyl Pred 60 mg q.6 hours secondary to worsening exam) -supplemental O2 if needed to maintain sats greater than equal 90% 2. Substance use disorder -Addictions consulted -COWS ordered lovenox Full code Requires ongoing hospitalization for IV antibiotics to treat aspiration pneumonia Quality Stroke Does the patient have a stroke diagnosis?: No Reason for No Anti-thrombotic by Day Two: N/A - Med Ordered VTE Prior VTE?: No VTE Risk Level:: Medical - moderate - high VTE Device Contraindication: N/A - Device Ordered VTE Drug Contraindication: N/A - Med Ordered
[2024-12-05] MEDS: guaiFEN/Codeine SF 200/20/10ML 10 ML LIQUID PO (15:06)
[2024-12-06] VITALS (11 sets, daily range): BP systolic 152–186; BP diastolic 82–90; PULSE 74–94; RESP 16–20; TEMP 36.6–36.9; O2SAT 94–100
[2024-12-06 07:28] LABS: Hematocrit 40.5 % (37.0-47.0); Hemoglobin 13.4 g/dl (12.0-16.0); Imm Gran Abs Auto 0.03 X10*3/uL (0.00-0.03); Imm Gran Pct Auto 0.4 % (0.0-0.4); Lymphocytes Absolute Auto 0.6 X10*3/uL (1.2-4.9); MANUAL DIFF FLAG SCAN; Mean Corpuscular HGB Conc 33.1 g/dl (31.0-35.0); Mean Corpuscular Hemoglobin 30.3 pg (27.0-33.0); Mean Corpuscular Volume 91.6 fL (80.0-98.0); NRBC Abs Auto 0.000 X10*3/uL (0.0-0.012); NRBC Pct Auto 0.0 /100WBC (0.0-0.2); Platelet Count 163 X10*3/uL (160-400); Red Blood Count 4.42 X10*6/uL (4.20-5.50); SCAN SMEAR FLAG 1; White Blood Count 8.2 X10*3/uL (4.8-10.8)
[2024-12-06] MEDS: 0.9 % Sodium Chloride Flush 3 ML SYRINGE IVFLUSH ×2 (08:31→15:15)
--- NOTE | 2024-12-06 09:46 | P.PNIM_ITS ---
Subjective Subjective Date of Service: 12/06/24 Interval History: No acute issues overnight. Persistent productive cough noted Review of Systems Denies chest pain Denies shortness of breath Denies nausea vomiting diarrhea Denies fever chills Physical Exam 2 Exam: Exam: Appearing in no acute distress lung sounds are clear to auscultation heart regular rate rhythm, clear S1, S2 positive bowel sounds, abdomen is soft, nontender neuro patient is alert x3, no focal deficits Vital Signs: Vital Signs: Last Vital Signs Temp 98 F 12/06/24 07:23 Pulse 92 12/06/24 07:23 Resp 18 12/06/24 07:23 BP 182/90 H 12/06/24 08:32 Pulse Ox 97 12/06/24 07:23 O2 Del Method Room Air 12/06/24 07:23 O2 Flow Rate 4 12/05/24 07:45 BMI result Body Mass Index 30.2 Objective Data Active Medications Acetaminophen (Acetaminophen 325 Mg Tablet) 650 mg PO Q6H PRN PRN Reason: Pain, Mild 1-3,fever,headache Albuterol/Ipratropium (Albuterol/Iprat 2.5/0.5mg 3 Ml Ampul.Neb) 3 ml INHALE Q4H PRN PRN Reason: Shortness of Breath/Wheezing Amlodipine Besylate (Amlodipine Besylate 10 Mg Tablet) 10 mg PO DAILY [facility]; Protocol Baclofen (Baclofen 10 Mg Tablet) 10 mg PO TID [facility] Last Admin: 12/06/24 08:32 Dose: 10 mg Documented By: GLENNY Calcium Carbonate (Calcium Carbonate 750 Mg Tab.Chew) 750 mg PO Q4H PRN PRN Reason: Heartburn Clonidine HCl (Clonidine Hcl 0.1 Mg Tablet) 0.1 mg PO TID PRN; Protocol PRN Reason: Anxiety Enoxaparin Sodium (Enoxaparin Sodium 40 Mg/0.4 Ml Syringe) 40 mg SUBCUT Q24H [facility] Last Admin: 12/06/24 08:32 Dose: 40 mg Documented By: GLENNY Fluoxetine HCl (Fluoxetine Hcl 10 Mg Capsule) 10 mg PO DAILY [facility] Last Admin: 12/06/24 08:32 Dose: 10 mg Documented By: GLENNY Guaifenesin/Codeine Phosphate (Guaifen/Codeine Sf 200/20/10ml 10 Ml Liquid) 10 ml PO Q4H PRN PRN Reason: Cough Last Admin: 12/05/24 15:06 Dose: 10 ml Documented By: GLENNY Hydralazine HCl (Hydralazine Hcl 20 Mg/Ml Vial) 5 mg IVPUSH Q4H PRN; Protocol PRN Reason: SBP>180 Hydroxyzine HCl (Hydroxyzine Hcl 50 Mg Tablet) 100 mg PO BEDTIME PRN PRN Reason: Anxiety Ampicillin Sodium/Sulbactam (Sodium 3 gm/ Sodium Chloride) 100 mls @ 200 mls/hr IV Q6H [facility] Last Infusion: 12/06/24 09:05 Dose: Infused Documented By: GLENNY Magnesium Hydroxide (Milk Of Magnesia 30 Ml Oral.Susp) 30 ml PO DAILY PRN PRN Reason: Constipation Melatonin (Melatonin 3 Mg Tablet) 6 mg PO BEDTIME PRN PRN Reason: Insomnia Ondansetron HCl (Ondansetron Hcl 4 Mg/2 Ml Vial) 4 mg IVPUSH Q8H PRN PRN Reason: Nausea and Vomiting Polyethylene Glycol (Polyethylene Glycol 3350 17 Gm Powd.Pack) 17 gm PO DAILY PRN PRN Reason: Constipation Senna (Sennosides 8.6 Mg Tablet) 17.2 mg PO BEDTIME [facility] Last Admin: 12/05/24 20:01 Dose: Not Given Documented By: JUAN Non-Admin Reason: Patient Refused Sodium Chloride (0.9 % Sodium Chloride Flush 3 Ml Syringe) 3 ml IVFLUSH QSHIFT [facility] Last Admin: 12/06/24 08:31 Dose: 3 ml Documented By: GLENNY Labs 12/06/24 06:54 12/05/24 06:30 Labs: Laboratory Results - last 24 hr 12/06/24 06:54 MCV 91.6 MCH 30.3 MCHC 33.1 RDW 12.7 Plt Count 163 MPV 12.8 H Immature Gran % (Auto) 0.4 Neut % (Auto) 90.2 H Lymph % (Auto) 7.6 L [place] % (Auto) 1.8 L Eos % (Auto) 0.0 Baso % (Auto) 0.0 Lymph # (Auto) 0.6 L [place] # (Auto) 0.2 Eos # (Auto) 0.0 Baso # (Auto) 0.0 Abs Immat Gran (auto) 0.03 Absolute Neuts (auto) 7.4 Absolute Nucleated RBC 0.000 Nucleated RBC % (auto) 0.0 Smear Tech's Comments VERIFIED Microbiology Microbiology Results: Microbiology 12/04/24 05:01 Blood Culture - Preliminary Blood - Venous No growth after 48 hours. 12/04/24 05:01 Blood Culture - Preliminary Blood - Venous No growth after 48 hours. 12/04/24 Unknown Urine Culture - Final Urine clean catch - Clean Catch Midstream Strep agalactiae (Grp B) Assessment and Plan (1) PNA (pneumonia): Status: Acute (2) Acute lung injury: Status: Acute (3) Polysubstance abuse: Status: Acute Plan 39 year old female with PMH HTN, Depression, Anxiety, substance use disorder, IUD placed September 2022 brought in by ambulance s/p being found by roommate unresponsive secondary to suspected accidental drug overdose with crack and possible heroin. Pt received 25 mg of INH Narcan administered by roommate. Pt was responsive and awake when EMS arrived. Pt denied SI. Concern for aspiration PNA noting hypoxia requiring 7L oxymask. Pt 's ddimer was 1999 and concern also for septic emboli. Pt transitioned to hi flow as POX dropped to 84 during coughing spell. Aspiration pneumonia likely secondary to accidental overdose Unasyn (2) change to IV steroids (methyl Pred 60 mg q.6 hours secondary to worsening exam) supplemental O2 if needed to maintain sats greater than equal 90% Hypertension. Elevated blood pressure readings of 180 Initially started on amlodipine 5 mg, increased to 10 mg Added IV hydralazine 5 mg for SBP greater than 180 Substance use disorder Recovery team following COWS ordered DVT prophylaxis with Lovenox Full code Quality Stroke Does the patient have a stroke diagnosis?: No Reason for No Anti-thrombotic by Day Two: N/A - Med Ordered VTE Prior VTE?: No VTE Risk Level:: Medical - moderate - high VTE Device Contraindication: N/A - Device Ordered VTE Drug Contraindication: N/A - Med Ordered
[2024-12-06] MEDS: oxyCODONE HCl Immed Release 5 MG TABLET 10 MG PO (11:53)
--- NOTE | 2024-12-06 12:18 | MHC.RECOVRN ---
Met with pt in follow up to discuss plans regarding pursuing recovery following discharge. Pt stated she is planning on going home first, and then potentially contacting [facility], as she does not wish to go anywhere else for treatment. Pt had been provided with recovery resources which she stated she did not have a chance to go over, however pt stated she does not need any further assistance from the ACS team. Pt able to contact the ACS team if any further questions or concerns arise.
--- NOTE | 2024-12-06 14:57 | MHC.CM.PN ---
Per MD rounds patient is not medically clear to discharge today. She requires further assessment and monitoring for elevated BP. Per MD she may be cleared to discharge tomorrow. DP home self care. Patient will need assist with transportation home.
[2024-12-06] MEDS: Milk of Magnesia 30 ML ORAL.SUSP PO (18:59)
--- NOTE | 2024-12-06 19:17 | PM.EVENT ---
Event Note Date of Service: 12/06/24 Event Note: Notified by the nurse that patient wanted to leave against medical advice. Talked to the patient at bedside, she was persistent that she wanted to go home. Patient deemed to have capacity and understands the risks of leaving against medical advice including worsening of lung infection leading to sepsis and/or . States she will follow-up with her outpatient doctor to continue antibiotics. Time Spent With Patient Time: Total time managing care of this patient today ____ minutes.
--- NOTE | 2024-12-06 19:20 | PC.NURSE ---
Pt alert and oriented x 4; At 1756 pt got two visitors; This RN has placed a camera in the room; Pt got anxious and frustrated about having the camera in the room, and her heart rate increased between 130-150 beats per minute during this time. Pt started saying that she doesn't want to have the camera in the room. At change of shift, heart rate remained in the 150s; Pt remained anxious and stated that she wants to leave with the antibiotics prescribed; Dr. Mercedes at the bedside to explain the risks of leaving AMA. Pt verbalized she understood the risks of leaving stating that she will be following up with her primary care provider to receive the antibiotics. IV removed, tele monitor removed, pt signed form and ambulated off the unit by self.
--- NOTE | 2024-12-25 15:54 | PM.DS ---
DS: Providers Provider Date of Service: 12/06/24 Date of admission: 12/04/24 06:07 Date of discharge: 12/06/24 Primary care physician: Carolee Miller NP Consults: 12/04/24 05:30 Addiction Medicine Provider Routine Consulting Provider: Addiction Covering Reason for consultation: accidental overdose Has provider been notified: No 12/04/24 06:05 Consult to Pulmonology Routine Consulting Provider: [facility] Pul[facility] Reason for consultation: acute hypoxic respiratory failure, crack cocaine abuse, OD today Has provider been notified: No DS: Diagnosis Discharge Diagnosis (1) PNA (pneumonia): Status: Resolved (2) Acute lung injury: Status: Resolved (3) Polysubstance abuse: Status: Inactive DS: Summary Hospital Course Hospital Course: History and physical as per admitting provider. Pt is a 39 yo female with PMH HTN, Depression, Anxiety, substance use disorder, IUD placed September 2022 brought in by ambulance s/p being found by roommate unresposnive secondary to suspected accidental drug overdose with crack and possible heroin. Pt recieved 25 mg of INH Narcan administered by roommate. Pt was responsive and awake when EMS arrived. Pt denied SI. Concern for aspiration PNA noting hypoxica requirring 7L oxymask. Pt 's ddimer 1999 and concern also for septic emboli. Pt started on ceftriaxone and azithromycin in the ED. Toxicology screen positive for opiates, fentanyl and cocaine. Pt seen in ED and started on HIFLOW from [employer]xim[facility]. POX dropped to 87% while awake during coughing spell. RT doing bronch protocol. VBG pending. BNP pending. CTA negative for PE but noted for PNA, suspect aspiration. Pt provided minimal HPI but states she uses drugs daily and did reiterate that she was not feeling SI. Pt has had help in the past for depression and anxiety but has not had any services in the community by choice. Pt also has not had any RX meds for HTN in some time as pt has not been seeing PCP regularly. The patient has decided to leave against medical advice. She has normal mental status and adequate capacity to make medical decisions. The patient refuses hospital admission and wants to be discharged. The risks have been explained to the patient including worsening illness, chronic pain, permanent disability and even . The benefits of admission have also been explained including the availability of nurses, medical providers, close monitoring, IV medications, diagnostic imaging, treatments, etc.. The patient was able to understand and state the risks and benefits of hospital admission. The patient was given opportunities to ask questions prior to leaving. This patient left overnight and was seen prior by registered veterinary technician Current medical problems being treated prior to leaving against medical advice: Aspiration pneumonia likely secondary to accidental overdose Unasyn (2) changed to IV steroids (methyl Pred 60 mg q.6 hours secondary to worsening exam) supplemental O2 if needed to maintain sats greater than equal 90% Hypertension. Elevated blood pressure readings of 180 Initially started on amlodipine 5 mg, increased to 10 mg Added IV hydralazine 5 mg for SBP greater than 180 Substance use disorder Recovery team following COWS ordered Time Attestation Discharge Coordination Time (in mins): 30 Quality: Safe Use of Opioids Does Pt have an Active Cancer Diagnosis on the Problem List?: No Quality: Stroke Does the patient have a stroke diagnosis?: No Physical Exam Exam: Exam: Left against medical advice Vital Signs: Vital Signs: Last Vital Signs Temp 98.2 F 12/06/24 16:00 Pulse 75 12/06/24 16:00 Resp 18 12/06/24 16:00 BP 152/82 H 12/06/24 16:00 Pulse Ox 96 12/06/24 16:00 O2 Del Method Room Air 12/06/24 16:00 O2 Flow Rate 4 12/05/24 07:45 BMI result Body Mass Index 30.2 Discharge Plan Discharge Anticipated Discharge Date/Time: 12/06/24 09:54 Patient Disposition: Left Against Medical Advice Discharge Diagnosis: Aspiration pneumonia Drug-induced lung injury Referrals: Carolee Miller NP [Primary Care Provider, Family Practice] - 1 Week Discharge Medications: Continued clonidine HCl 0.1 mg tablet 0.1 mg PO TID PRN (Reason: Anxiety) ibuprofen 800 mg tablet 800 mg PO TID PRN (Reason: Pain) hydroxyzine HCl 50 mg tablet 50 - 100 mg PO BID@0900,1300 PRN (Reason: Anxiety) baclofen 10 mg tablet 10 mg PO TID fluoxetine 10 mg capsule 10 mg PO DAILY quetiapine 50 mg tablet 25 - 50 mg PO BEDTIME PRN (Reason: insomnia) melatonin 5 mg tablet 5 mg PO BEDTIME hydroxyzine HCl 50 mg tablet 100 mg PO BEDTIME PRN (Reason: Anxiety) Discharge Orders: Discharge Order (Routine); Ordered 12/25/24 Ordered By: Lashae Chavez Diet: Advance to usual diet Activity on Discharge: As tolerated Stand Alone Forms: Patient Portal Discharge page Print Language: Faroese Care Plan Goals: Complete short course of prednisone taper Complete antibiotics Health Concerns: Aspiration pneumonia Drug-induced lung injury Plan of Treatment: Follow up with primary care provider as needed Take all medications as prescribed Assessment: See discharge summary Discharge Date/Time: 12/06/24 19:49
== END 2024-12-06 19:49 | disposition left against medical advice (07) | DRG 816 ==
LOC: HO.ED 06:19 → HO.EDOVER 06:23 → HO.IMC 19:19
PROVIDERS: Hospitalist; Nurse Practitioner Family; Admitting Provider Student in an Organized Health Care Education/Training Program; Emergency Provider Emergency Medicine; PCP Nurse Practitioner; Visit Provider Nurse Practitioner Acute Care
DX: T40.5X1A Poisoning by cocaine, accidental (unintentional), initial encounter (principal); J96.01 Acute respiratory failure with hypoxia; J69.0 Pneumonitis due to inhalation of food and vomit; F19.90 Other psychoactive substance use, unspecified, uncomplicated; T40.1X1A Poisoning by heroin, accidental (unintentional), initial encounter; F17.210 Nicotine dependence, cigarettes, uncomplicated; Z20.822 Contact with and (suspected) exposure to COVID-19; Z71.6 Tobacco abuse counseling; Z79.899 Other long term (current) drug therapy
CPT/HCPCS: 36415; 71045; 71275; 80053; 80307; 81001; 82248; 82803; 83605; 83735; 83880; 84702; 85025; 85379; 87040; 87086; 87147; 87637; 93005; 94640; 99285; J0295; J0360; J0456; J0696; J1650; J2312; J2405; J2919; S9485

== ENCOUNTER → 2024-12-04 02:12 | Outpatient (BNV) | payer MEDICAID, SELFPAY | PROVIDERS: Admitting Provider Student in an Organized Health Care Education/Training Program; Emergency Provider Emergency Medicine; Visit Provider Internal Medicine | DX: T50.901A Poisoning by unspecified drugs, medicaments and biological substances, accidental (unintentional), initial encounter (principal); R94.31 Abnormal electrocardiogram [ECG] [EKG] | CPT/HCPCS: 93010 ==

== ENCOUNTER → 2024-12-04 02:13 | Outpatient (BNV) | payer MEDICAID, SELFPAY | PROVIDERS: Emergency Provider Emergency Medicine; Visit Provider General Practice | DX: R06.02 Shortness of breath (principal); R09.02 Hypoxemia | CPT/HCPCS: 71045; 71275 ==

== ENCOUNTER → 2024-12-04 06:07 | Outpatient (BNV) | payer MEDICAID, SELFPAY | PROVIDERS: Admitting Provider Student in an Organized Health Care Education/Training Program; Emergency Provider Emergency Medicine; Visit Provider Internal Medicine Pulmonary Disease | DX: S27.309A Unspecified injury of lung, unspecified, initial encounter (principal) | CPT/HCPCS: 99222 ==

== ENCOUNTER → 2024-12-04 06:07 | Outpatient (BNV) | payer MEDICAID, SELFPAY | PROVIDERS: Admitting Provider Student in an Organized Health Care Education/Training Program; Emergency Provider Emergency Medicine; Visit Provider Nurse Practitioner Family | DX: J18.9 Pneumonia, unspecified organism (principal); S27.309A Unspecified injury of lung, unspecified, initial encounter; F19.10 Other psychoactive substance abuse, uncomplicated | CPT/HCPCS: 99223; 99232; 99499 ==

== ENCOUNTER 2024-12-24 04:00 | Emergency (ER) | payer MEDICAID, SELFPAY ==
[2024-12-24] VITALS (14 sets, daily range): BP systolic 134–217; BP diastolic 71–133; PULSE 65–92; RESP 12–20; TEMP 36.4–36.9; O2SAT 97–100; BMI 28.9
--- NOTE | ~2024-12-24 | CT_ITS ---
CLINICAL HISTORY: altered mental status CT head without contrast Comparison: None provided Findings: No intra-axial mass, midline shift, hydrocephalus, or acute hemorrhage. No significant atrophy-like change or white matter disease. There is no sinus or mastoid fluid. A metallic foreign body seen in the inferomedial aspect of the left orbit. The globe is intact. No skull fracture. IMPRESSION: 1. No acute intracranial findings. Metallic foreign body left orbit. This document has been electronically signed by: Donal Borjas MD on 12/24/2024 05:11:43
--- NOTE | 2024-12-24 04:12 | MHC.EDTECH ---
Belongings on shelf 1
[2024-12-24 04:30] LABS: Glucose, Whole Blood 117 mg/dL (60-115)
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
--- NOTE | 2024-12-24 04:45 | ECG_ITS ---
Test Reason : hypertension Blood Pressure : */* mmHG Vent. Rate : 74 BPM Atrial Rate : 74 BPM P-R Int : 190 ms QRS Dur : 90 ms QT Int : 406 ms P-R-T Axes : 77 -24 57 degrees QTcB Int : 450 ms Normal sinus rhythm Possible Left atrial enlargement Anterior infarct (cited on or before 04-Dec-2024) Abnormal ECG When compared with ECG of 04-Dec-2024 02:26, No significant change was found Referred By: Khai Luu Electronically Signed By: KATERINA EDWARDS
[2024-12-24 05:12] LABS: MANUAL DIFF FLAG NO
[2024-12-24 05:14] LABS: Hematocrit 40.2 % (37.0-47.0); Hemoglobin 13.6 g/dl (12.0-16.0); Imm Gran Abs Auto 0.02 X10*3/uL (0.00-0.03); Imm Gran Pct Auto 0.2 % (0.0-0.4); Lymphocytes Absolute Auto 2.0 X10*3/uL (1.2-4.9); Mean Corpuscular HGB Conc 33.8 g/dl (31.0-35.0); Mean Corpuscular Hemoglobin 30.4 pg (27.0-33.0); Mean Corpuscular Volume 89.7 fL (80.0-98.0); NRBC Abs Auto 0.000 X10*3/uL (0.0-0.012); NRBC Pct Auto 0.0 /100WBC (0.0-0.2); Platelet Count 256 X10*3/uL (160-400); Red Blood Count 4.48 X10*6/uL (4.20-5.50); White Blood Count 8.9 X10*3/uL (4.8-10.8)
[2024-12-24] MEDS: diazePAM 10 MG/2 ML CARTRIDGE 5 MG IVPUSH ×2 (05:30→05:53)
[2024-12-24 05:34] LABS: Alanine Aminotransferase 34 U/L (0-31); Albumin Level 4.6 g/dL (3.5-5.0); Alkaline Phosphatase 64 U/L (39-117); Anion Gap 13 (12-20); Aspartate Amino Transferase 65 U/L (5-31); Blood Urea Nitrogen 24 mg/dL (9-16); Calcium 8.9 mg/dL (8.4-10.2); Carbon Dioxide 19 mmol/L (22-29); Chloride 112 mmol/L (96-108); Creatinine Clr Calc Pharmacy 99.6; Estimated Glomerular Filt Rate > 60; Magnesium 2.4 mg/dL (1.6-2.6); Potassium 4.5 mmol/L (3.3-5.1); Sodium 139 mmol/L (135-145); Total Protein 7.5 g/dL (6.5-8.0)
[2024-12-24] MEDS: Lactated Ringers 1,000 ML 999 ML IV (06:59)
--- NOTE | 2024-12-24 07:00 | PC.NURSE ---
Addendum entered by Isadora Waldrop RN 12/24/24 07:02: Pt is a 39 yo female with PMH HTN, Depression, Anxiety, substance use disorder, IUD placed September 2022 brought in by ambulance s/p being found by roommate unresposnive secondary to suspected accidental drug overdose with crack and possible heroin. Bystanders threw water on patient and when the PD arrived was administered 12mg of intranasal narcan. EMS arrived and patient responsive with N/V. Patient lethargic but arrousable. Able to ambulate to the bathroom with steady gait. monitor technician maintained and NSR noted. Patient remains significantly hypertensive and provider is aware. Respirations even and non-labored. Abdomen soft, non-tender with positive bowel sounds. Positive pedal pulses with no edema. Original Note: Medical History Overdose Polysubstance abuse
[2024-12-24] MEDS: diazePAM 10 MG/2 ML CARTRIDGE IVPUSH (07:01)
[2024-12-24 07:17] LABS: Appearance Urine Clear; Glucose Urine UA Negative (Negative); PH 6.5 (5.0-9.0); Specific Gravity - Urine 1.020 (1.005-1.025); UMIC TRIGGER UACC YES
[2024-12-24 07:19] LABS: UACC Culture Trigger YES
[2024-12-24 07:32] LABS: Cannabinoid Screen Urine POSITIVE (Not Detect)
--- NOTE | 2024-12-24 17:59 | MHC.EDTECH ---
pt ambulated to and from the bathroom with a steady gait, pt now sitting up right in bed, crackers sandwich and randall srinivasa given upon request.
== END 2024-12-24 19:48 | disposition home or self-care (01) ==
PROVIDERS: Emergency Provider Emergency Medicine
DX: F19.20 Other psychoactive substance dependence, uncomplicated (principal); T65.91XA Toxic effect of unspecified substance, accidental (unintentional), initial encounter; Y92.9 Unspecified place or not applicable
CPT/HCPCS: 36415; 70450; 80048; 80076; 80307; 81001; 82947; 83735; 84702; 85025; 87086; 93005; 96361; 96374; 96375; 96376; 99285; J2405; J3360; J7120

== ENCOUNTER → 2024-12-24 04:33 | Outpatient (BNV) | payer MEDICAID, SELFPAY | PROVIDERS: Emergency Provider Emergency Medicine; Visit Provider Radiology Diagnostic Radiology | DX: H05 Disorders of orbit (principal) | CPT/HCPCS: 70450 ==

== ENCOUNTER → 2024-12-24 04:45 | Outpatient (BNV) | payer MEDICAID, SELFPAY | PROVIDERS: Emergency Provider Emergency Medicine; Visit Provider Internal Medicine | DX: I25.2 Old myocardial infarction (principal) | CPT/HCPCS: 93010 ==